=== PATIENT | female | born 1950 | race American Indian/Alaskan Native ===

== ENCOUNTER 2019-03-12 22:46 | Emergency (ER) | payer BC, MEDICARE, OTHER ==
[2019-03-12 22:46] VITALS: BMI 25.2
[2019-03-12 23:10] VITALS: TEMP 98.4
--- NOTE | 2019-03-13 00:20 | ED PDOC ---
Arrival/HPI - General Chief Complaint: Finger,Hand,&Wrist Time Seen by Provider: 03/12/19 22:55 Historian: Patient - History of Present Illness Narrative History of Present Illness (Text): 03/13/19 00:20 68 yo F complaining of left wrist pain and swelling which started today after she went to the grocery store and tried to push a shopping cart, states that the shopping cart's wheels got jammed and she pushed the cart with both of her hands and then developed pain and swelling to the left wrist. Otherwise reports no fever, chills, numbness, other joint pain. Patient has no additional complaints. Past Medical History - Infectious Disease Hx of Infectious Diseases: None - Reproductive Menopause: Yes - Cardiac Hx Cardiac Disorders: Yes Hx GA: Yes Hx Hypertension: Yes - Pulmonary Hx Respiratory Disorders: No - Neurological Hx Neurological Disorder: No - HEENT Hx HEENT Disorder: No - Renal Hx Renal Disorder: No - Endocrine/Metabolic Hx Endocrine Disorders: No Hx Hyperthyroidism: Yes - Hematological/Oncological Hx Blood Disorders: No - Integumentary Hx Dermatological Disorder: No - Musculoskeletal/Rheumatological Hx Falls: No Hx Osteoarthritis: Yes Hx Rheumatoid Arthritis: Yes - Gastrointestinal Hx Gastrointestinal Disorders: Yes Hx Gastroesophageal Reflux: Yes Other/Comment: HIATAL HERNIA - Genitourinary/Gynecological Hx Genitourinary Disorders: No - Psychiatric Hx Psychophysiologic Disorder: No Hx Substance Use: No - Surgical History Hx Cardiac Catheterization: Yes Hx Coronary Stent: Yes (X2) Other/Comment: ECTOPIC - Anesthesia Hx Anesthesia: Yes Hx Anesthesia Reactions: No Hx Malignant Hyperthermia: No Family/Social History Family/Social History: No Known Family HX Smoking Status: Never Smoked Hx Alcohol Use: No Hx Substance Use: No Allergies/Home Meds Allergies/Adverse Reactions: Allergies No Known Allergies Allergy (Verified 03/12/19 23:10) Home Medications: Home Meds Medication Instructions Recorded Confirmed Metoprolol Succinate XL [Toprol XL] 10 mg PO DAILY 10/18/15 03/12/19 Rosuvastatin Calcium [Crestor] 40 mg PO DAILY 10/18/15 03/12/19 Aspirin [Ecotrin] 81 mg PO DAILY 01/20/18 03/12/19 Atorvastatin [Lipitor] 10 mg PO HS 03/12/19 03/12/19 Clopidogrel [Plavix] 75 mg PO DAILY 03/12/19 03/12/19 Review of Systems - Review of Systems Constitutional: absent: Fatigue, Fevers Musculoskeletal: Arthralgias, Joint Swelling. absent: Back Pain, Neck Pain Skin: absent: Rash, Pruritis, Skin Lesions Neurological: absent: Headache, Dizziness Physical Exam Vital Signs Temp Pulse Resp BP Pulse Ox 03/12/19 23:08 98.4 F 62 16 147/83 98 Temperature: Afebrile Blood Pressure: Normal Pulse: Regular Respiratory Rate: Normal Appearance: Positive for: Well-Appearing, Non-Toxic, Comfortable Pain Distress: Mild Mental Status: Positive for: Alert and Oriented X 3 - Systems Exam Upper Extremity: Present: NORMAL PULSES, Tenderness (+tenderness to the L wrist with swelling noted), Swelling (to the left wrist), Neurovascularly Intact, Capillary Refill < 2s, Norm 2-Pt Discrimination, Other (remaining joints to the UE is non-tender with no swelling and +FROM). No: Erythema, Temperature Abnormalties, Deformity Neurological: Present: GCS=15, CN II-XII Intact, Speech Normal, Motor Func G rossly Intact, Normal Sensory Function Skin: Present: Warm, Dry, Normal Color. No: Rashes Psychiatric: Present: Alert, Oriented x 3, Normal Insight, Normal Concentration Medical Decision Making ED Course and Treatment: 03/13/19 00:18 XR L wrist : no fracture, no dislocation. Patient advised that official radiology read of XR is still pending and will call the patient if there is any discrepancy within 24 hours. X-ray results discussed with the patient. Diagnosis of wrist sprain discussed with the patient. Advised to keep wrist elevated. Ortho-Glass volar splint applied to the left wrist. Advised to follow up with primary care physician or ortho referral provided in 1-2 days without fail. Return to the emergency room at any time for any new or worsening symptoms. Patient states she fully agrees with and understands discharge instructions. States that she agrees with the plan and disposition. Verbalized and repeated discharge instructions and plan. I have given the patient opportunity to ask any additional questions. - RAD Interpretation Radiology Orders: 03/12/19 23:30 WRIST, LEFT 3 VIEWS [RAD] Stat - PA / [employer] / Resident Statement MD/DO has reviewed & agrees with the documentation as recorded. Disposition/Present on Arrival - Present on Arrival Any Indicators Present on Arrival: No History of DVT/PE: No History of Uncontrolled Diabetes: No Urinary Catheter: No History of Decub. Ulcer: No History Surgical Site Infection Following: None - Disposition Have Diagnosis and Disposition been Completed?: Yes Diagnosis: Left wrist sprain Disposition: HOME/ ROUTINE Disposition Time: 00:15 Patient Plan: Discharge Patient Problems: Current Active Problems Problem Status Onset Left wrist sprain Acute Condition: STABLE Discharge Instructions (ExitCare): Wrist Sprain (DC) Additional Instructions: Thank you for letting us take care of you today. You were treated for left wrist sprain. The emergency medical care you received today was directed at your acute symptoms. Keep wrist elevated, take Tylenol for pain. It may take several days for your symptoms to resolve. Return to the Emergency Department if your symptoms worsen, do not improve, or if you have any other problems. Please contact your doctor in 2 days for re-evaluation and follow up / or call one of the physicians/clinics you have been referred to that are listed on the Patient Visit Information form that is included in your discharge packet. Bring any paperwork you were given at discharge with you along with any medications you are taking to your follow up visit. Our treatment cannot replace ongoing medical care by a primary care provider (PCP) outside of the emergency department. Thank you for allowing the [facility] team to be part of your care today. If you had an X-Ray : A Radiologist will review the ED reading if any change in treatment is needed we will contact you. Referrals: Adelfo Vega DO [Staff Provider] - Follow up with primary Forms: [employer] ([place]ovenian)
[2019-03-13 01:26] VITALS: BP 147/82; PULSE 65; RESP 18; O2SAT 100
--- NOTE | 2019-03-13 10:27 | RAD ---
Date of service: 03/12/2019 PROCEDURE: Left Wrist Radiographs. HISTORY: pain COMPARISON: None. TECHNIQUE: 4 views obtained. FINDINGS: BONES: No acute fracture. JOINTS: Unremarkable. SOFT TISSUES: Calcification in the triangle fibrocartilage complex with small amount of soft tissue swelling. OTHER FINDINGS: None. IMPRESSION: No demonstrated fracture or dislocation. Soft tissue swelling in the region of the ulnar styloid. Calcification in the triangular fibrocartilage complex, likely representing chondrocalcinosis.
== END 2019-03-13 00:22 | disposition home or self-care (01) ==
LOC: ED 22:46
DX: S63.502A Unspecified sprain of left wrist, initial encounter (principal); X50.0XXA Overexertion from strenuous movement or load, initial encounter; Y92.512 Supermarket, store or market as the place of occurrence of the external cause